=== PATIENT | female | born 1965 | race Caucasian/White ===

== ENCOUNTER → 2019-08-07 | Outpatient (CLI) | payer BC ==
[2015-03-21 18:39] VITALS: BP 130/82
--- NOTE | 2019-08-17 14:24 | RAD ---
DATE: 08/07/2019 EXAM: MAMMO LEDA SCREENING BILATERAL HISTORY: Routine screening COMPARISON: None. Attempts to obtain outside exams for comparison were unsuccessful. This study was interpreted with the benefit of Computerized Aided Detection (CAD). Breast Density: SCATTERED The breast parenchyma shows scattered fibroglandular densities. Breast parenchyma level B. FINDINGS: Minimal benign calcification is present. No masses or distortion. Slightly greater density of the right upper-outer breast is present but there are no suspicious asymmetries. IMPRESSION: No suspicious process. BI-RADS CATEGORY: 1 NEGATIVE RECOMMENDED FOLLOW-UP: 12M 12 MONTH FOLLOW-UP PQRS compliance statement: Patient information was entered into a reminder system with a target due date for the next mammogram. Mammography is a sensitive method for finding small breast cancers, but it does not detect them all and is not a substitute for careful clinical examination. A negative mammogram does not negate a clinically suspicious finding and should not result in delay in biopsying a clinically suspicious abnormality. "Our facility is accredited by the [employer] Mammography Program."
== END | disposition home or self-care (01) ==
LOC: MAMMO 13:11
PROVIDERS: ATTEND Specialist
DX: Z12.31 Encounter for screening mammogram for malignant neoplasm of breast (principal); N64.89 Other specified disorders of breast
CPT/HCPCS: 77063; 77067

== ENCOUNTER → 2020-05-05 | Outpatient (CLI) | payer BC ==
[2015-03-21 18:39] VITALS: BP 130/82
--- NOTE | 2020-05-05 12:26 | RAD ---
3 views left knee without comparison for left knee pain. FINDINGS: There is no fracture, dislocation, or acute osseous abnormality identified. Mild osteoarthritis is seen primarily involving the medial joint compartment. There is likely a suprapatellar joint effusion. IMPRESSION: 1. No acute osseous abnormality. 2. Monarticular osteoarthritis of the medial compartment. 3. Probable small suprapatellar joint effusion. Electronically signed by: Pepito Canela MD (05/05/2020 12:23 PM) [id number]
== END | disposition home or self-care (01) ==
LOC: DXRAD 10:21
PROVIDERS: ATTEND Physician Assistant
DX: M17.12 Unilateral primary osteoarthritis, left knee (principal)
CPT/HCPCS: 73562

== ENCOUNTER → 2021-11-27 | Outpatient (CLI) | payer BC ==
[2015-03-21 18:39] VITALS: BP 130/82
--- NOTE | 2021-11-27 10:26 | RAD ---
INDICATION : Routine Screening. COMPARISON: August 2019 TECHNIQUE: Standard mammogram screening views of the bilateral breasts were obtained with 3D tomosynt hesis. CAD was utilized. FINDINGS: The breasts are scattered density. No definite suspicious mass. IMPRESSION: BI-RADS Category 1: Negative. Recommend repeat screening examination in one year. The patient was placed into the recall system with a suggested recall date for follow up imaging. Mammography is the most sensitive method for finding small breast cancers, but it does not detect the m all and is not a substitute for careful clinical examination. A negative mammogram does not negate a clinically suspicious finding and should not result in delay in biopsying a clinically suspicious abnormality. Electronically signed by: Foster Perez MD (11/27/2021 10:24 AM) [id number]
== END ==
LOC: MAMMO 08:49
PROVIDERS: ATTEND Specialist
DX: Z12.31 Encounter for screening mammogram for malignant neoplasm of breast (principal)
CPT/HCPCS: 77063; 77067